=== PATIENT | male | born 1980 | race Caucasian/White ===

== ENCOUNTER → 2017-11-29 | Outpatient (CLI) | payer OTHER ==
[~2017-11-29] MED LIST: BACL10TA PO; CEFU250T15 PO; FNTTP75; HYDR-3983 PO; LISI-725 PO; METO25TA3 PO; SERT25TA PO; TRAZ50TA35 PO
== END | disposition home or self-care (01) ==
LOC: C.LAB1850 11:12
PROVIDERS: ATTEND Internal Medicine Infectious Disease
DX: N39.0 Urinary tract infection, site not specified (principal)